=== PATIENT | male | born 1980 | race Caucasian/White ===

== ENCOUNTER → 2018-11-22 | Outpatient (CLI) | payer BC | LOC: GMA 10:38 | PROVIDERS: ATTEND Nurse Practitioner Family | DX: R53.82 Chronic fatigue, unspecified (principal) ==

== ENCOUNTER → 2019-01-05 | Outpatient (CLI) | payer BC | LOC: GMA MATASK 10:30 | PROVIDERS: ATTEND Family Medicine | DX: E29.9 Testicular dysfunction, unspecified (principal) ==

== ENCOUNTER → 2019-04-11 | Outpatient (CLI) | payer BC | LOC: GMAF 11:05 | PROVIDERS: ATTEND Nurse Practitioner Family | DX: E29.9 Testicular dysfunction, unspecified (principal) ==